=== PATIENT | male | born 1935 | race Caucasian/White ===

== ENCOUNTER → 2022-09-11 | Outpatient (CLI) | payer MEDICARE ==
--- NOTE | 2022-09-11 11:14 | US ---
EXAMINATION TYPE: US prostate transrectal DATE OF EXAM: 09/11/2022 COMPARISON: NONE CLINICAL HISTORY: N18.31 CHRONIC KIDNEY DISEASE, STAGE 3A, R97.20 ELEVA, N40.0. Elevated PSA. This examination was performed using the transrectal probe. EXAM MEASUREMENTS: Gland Size: 4.55 x 4.42 x 3.28 cm. Volume: 34.54 ml Predicted PSA: 4.15 Actual PSA (if available):17.2 Gland appears heterogeneous. Contour appears irregular adjacent to the bladder. *Hypoechoic, heterogeneous tissue seen left peripheral zone of prostate. IMPRESSION: No suspicious lesion identified. Glandular hypertrophy noted. Predicted PSA = volume x 0.12 ng/ml Calculated Volume = 0.5236 x L x W x H
--- NOTE | 2022-09-11 11:27 | US ---
EXAMINATION TYPE: US kidneys/renal and bladder DATE OF EXAM: 09/11/2022 COMPARISON: NONE CLINICAL HISTORY: N18.31 CHRONIC KIDNEY DISEASE, STAGE 3A, R97.20 ELEVA, N40.0. CKD. EXAM MEASUREMENTS: Right Kidney: 9.5 x 5.4 x 4.5 cm Left Kidney: 10.1 x 4.1 x 4.8 cm Right Kidney: Prominent renal pelvis. -Hypoechoic area seen lower pole: 1.5 x 1.6 x 1.6 cm. -Anechoic area seen upper pole: 4.3 x 3.3 x 4.2 cm. Left Kidney: Hyperechoic area seen lower pole: 0.4 x 0.3 x 0.4 cm. Anechoic area seen lower pole: 1.0 x 1.0 x 0.8 cm. Hyperechoic area seen upper pole: 0.3 x 0.2 x 0.2 cm. Bladder: Appears anechoic. Bilateral Jets seen: No, limited evaluation due to movement and bladder not fully distended. Prostate imaged incidentally in bladder images. Prostate ultrasound today 09/11/22. IMPRESSION: 1. Nonobstructing nephrolithiasis. Simple cyst left kidney.
== END | disposition home or self-care (01) ==
LOC: RADUSWWP 09:07
PROVIDERS: ATTEND Family Medicine
DX: N20.0 Calculus of kidney (principal); N40.0 Benign prostatic hyperplasia without lower urinary tract symptoms; N28.1 Cyst of kidney, acquired; N18.31 Chronic kidney disease, stage 3a
CPT/HCPCS: 76770; 76872

== ENCOUNTER 2022-10-13 10:42 | Day surgery (SDC) | payer MEDICARE ==
[2022-10-08 11:18] VITALS: BMI 21.0
[~2022-10-13 10:42] MED LIST: LACTATED RINGERS 1,000 ML IV SCH
[2022-10-13 11:01] VITALS: TEMP 97.8
[2022-10-13] MEDS ORDERED: LACTATED RINGERS 1,000 ML IV ONE (11:02)
[2022-10-13] MEDS ORDERED: PROPOFOL 10 MG/ML 20 ML VIAL IV ONE (12:05)
--- NOTE | 2022-10-13 12:22 | P.PCN ---
Date of Procedure: 10/13/22 Procedure(s) Performed: BRIEF HISTORY: Patient is a 86-year-old pleasant white male scheduled for an elective colonoscopy as a part of screening for colon cancer/positive cologuard PROCEDURE PERFORMED: Colonoscopy with snare polypectomy. PREOPERATIVE DIAGNOSIS: Screening for colon cancer/positive cologuard. IV sedation per Anesthesia. PROCEDURE: After informed consent was obtained, the patient, was brought into the endoscopy unit. IV sedation was administered by Anesthesia under continuous monitoring. Digital rectal examination was normal. Initially the Olympus CF-160 flexible video colonoscope was then inserted in the rectum, gradually advanced into the cecum without any difficulty. Careful examination was performed as the scope was gradually being withdrawn. Ileocecal valve and the appendiceal orifice were visualized and appeared normal. Prep was excellent. Mucosa of the cecum and 2.5 cm broad-based polyp that was removed by piecemeal snare polypectomy and separate polypectomy was accomplished. Mucosa of the, ascending colon, transverse colon, descending colon, sigmoid colon, and rectum appeared normal. Scattered left-sided diverticulosis Retroflexion was performed in the rectum and no lesions were seen. The patient tolerated the procedure well. IMPRESSION: 2.5 cm broad-based cecal polyp status post piecemeal snare polypectomy and complete polypectomy accomplished Scattered sigmoid diverticulosis RECOMMENDATIONS: Findings of this examination were discussed with the patient as well as his family.. He was advised to follow with the biopsy results. If the biopsies adenoma he can have a repeat colonoscopy in 3 years
[2022-10-13 12:33] VITALS: RESP 16
[2022-10-13 12:41] VITALS: BP 125/66; PULSE 64
== END 2022-10-13 13:28 | disposition home or self-care (01) ==
LOC: ORWHC2ENDO 10:42
PROVIDERS: ATTEND Internal Medicine Gastroenterology
DX: D12.0 Benign neoplasm of cecum (principal); K63.4 Enteroptosis; K57.30 Diverticulosis of large intestine without perforation or abscess without bleeding; I10 Essential (primary) hypertension; I48.91 Unspecified atrial fibrillation; Z91.041 Radiographic dye allergy status; N28.9 Disorder of kidney and ureter, unspecified; K21.9 Gastro-esophageal reflux disease without esophagitis; Z87.438 Personal history of other diseases of male genital organs; Z79.01 Long term (current) use of anticoagulants; Z79.83 Long term (current) use of bisphosphonates; Z79.899 Other long term (current) drug therapy
CPT/HCPCS: 88305; 45385; J2704